=== PATIENT | female | born 1980 | race Caucasian/White ===

== ENCOUNTER → 2016-08-26 | Outpatient (CLI) | payer BC ==
[~2016-08-26] MED LIST: AMLO10TA4 PO; GABA100C PO; HYDR2TAB56 PO; ONDA4TAB4 PO; OXYC20TA44 PO; PROM25TA7 PO; SERT100T PO
--- NOTE | 2016-08-26 15:54 | DI ---
Indication: ITS.REASON: Q61.2 POLYCYSTIC KIDNEY, ADULT TYPE PROCEDURE: CT RENAL W/O CONTRAST: Encounter: Subsequent Comparison: Renal CT dated May 23, 2016 Technique: Axial CT images were performed through the abdomen and pelvis without intravenous contrast. Coronal and sagittal two-dimensional reformats. Automated Exposure Control and Iterative Reconstruction dose reducing techniques were utilized. Findings: The lung bases are clear. The unenhanced contours of the liver show a stable simple appearing cyst in the left lobe. No contour deforming mass. The gallbladder is normal. The spleen, pancreas and adrenal glands are normal. Polycystic enlarged kidneys are again seen bilaterally with too numerous to count cysts replacing the renal parenchyma. There are occasional calcified and hyperdense cysts in both kidneys with a very similar appearance to the comparison study. No obvious solid renal mass. No gross hydronephrosis. There is a new 4.6 cm cyst apparently arising from the right ovary adjacent to the bladder. Left ovary is normal for age. Bladder is normal. Uterus is within normal limits. No free fluid. No evidence of a bowel obstruction. The appendix is normal. Bone windows are stable without lytic or blastic lesion. Impression: 1. New 4.6 cm right ovarian cyst is probably benign. This could be further evaluated with a pelvic ultrasound if the patient is symptomatic or as clinically indicated. 2. Otherwise, stable appearance of the abdomen and pelvis with changes from autosomal dominant polycystic kidney disease. 3. Recommend screening of the brain for saldana aneurysm formation with either CTA or MRA if this has not been previously performed. .
== END ==
LOC: IMA 15:14
PROVIDERS: ATTEND Orthopaedic Surgery
DX: Q61.2 Polycystic kidney, adult type (principal); N83.201 Unspecified ovarian cyst, right side